=== PATIENT | female | born 1975 | race Caucasian/White ===

== ENCOUNTER 2017-05-25 09:59 | Inpatient (IN) | payer MEDICAID ==
[~2017-05-25] VITALS: Ht 152.4 cm; Wt 70.3 kg
[~2017-05-25 09:59] MED LIST: IBUP-2030; SERT-112
[2017-05-25] MEDS ORDERED: LACTATED RINGERS 1,000 ML IV SCH (11:00)
[2017-05-25 11:11] LABS: CLARITY URINE CLEAR (CLEAR); COLOR URINE YELLOW (YELLOW); GLUCOSE URINE NEGATIVE (NEGATIVE); KETONES URINE NEGATIVE (NEGATIVE); LEUKOCYTE ESTERASE URINE NEGATIVE (NEGATIVE); NITRITE URINE NEGATIVE (NEGATIVE); OCCULT BLOOD URINE 2+ (NEGATIVE); PROTEIN URINE NEGATIVE (NEGATIVE); SPECIFIC GRAVITY URINE 1.024 (1.005-1.030); UROBILINOGEN URINE 0.2 E.U./dL (0.2-1.0)
[2017-05-25 11:12] LABS: BASOPHILS % 0.3 % (0.0-2.0); HEMATOCRIT. 39.5 % (36.0-48.0); HEMOGLOBIN. 13.3 g/dL (12.0-16.0); LYMPHOCYTES % 18.4 % (20.0-50.0); MEAN CORPUSCULAR HEMOGLOBIN 29.7 pg (28.0-32.0); MEAN CORPUSCULAR VOLUME 88.3 fL (81.0-99.0); MEAN PLATELET VOLUME 8.8 fl (7.4-10.4); MONOCYTES % 9.8 % (2.0-8.0); NEUTROPHILS % 69.5 % (40.0-76.0); PLATELET 230 x1000/uL (130-400); RED BLOOD CELL COUNT 4.47 mill/uL (4.2-5.4); RED CELL DISTRIBUTION WIDTH 13.1 % (11.6-14.6)
[2017-05-25 11:19] LABS: PROTHROMBIN TIME 10.6 sec (9.4-11.6)
[2017-05-25] MEDS ORDERED: BACITRACIN 50,000 UNITS/VIAL ONE (11:23)
[2017-05-25] MEDS ORDERED: BUPIVACAINE/EPINEPH/PF 0.25%/0.0005 10ML ONE ×2 (11:23→18:00)
[2017-05-25 11:24] LABS: CARBON DIOXIDE 29 mEq/L (21-32); CHLORIDE 104 mEq/L (98-107)
[2017-05-25] MEDS ORDERED: NORMAL SALINE 0.9% 10 ML SYR ONE (11:24)
[2017-05-25] MEDS ORDERED: IBUP-2030 PO (11:37)
[2017-05-25] MEDS ORDERED: NAPR-681 PO (11:37)
[2017-05-25] MEDS ORDERED: NAPR220T66 PO (11:37)
[2017-05-25] MEDS ORDERED: MORPHINE SULFATE/PF 1MG/ML 10ML AMP ONE (12:44)
[2017-05-25] MEDS ORDERED: TRANEXAMIC ACID 1,000 MG in SODIUM CHLORIDE 0.9% 100 ML IV NR (13:00)
[2017-05-25] MEDS ORDERED: METHYLENE BLUE 50 MG/10 ML AMP IV NR (13:00)
[2017-05-25 13:08] LABS: HCG SCREEN POSITIVE
[2017-05-25 14:33] LABS: UCG SCREEN NEGATIVE
[2017-05-25 15:23] LABS: HCG SCREEN INDETERMINATE
[2017-05-25] MEDS ORDERED: MIDAZOLAM HCL 2 MG/2 ML VIAL ONE (15:53)
[2017-05-25] MEDS ORDERED: FENTANYL CITRATE/PF 50MCG/ML 2ML VIAL ONE (15:53)
[2017-05-25] MEDS ORDERED: HYDROMORPHONE HCL/PF 2MG/ML CPJ IV PRN (16:15)
[2017-05-25] MEDS ORDERED: MEPERIDINE HCL/PF 25MG/ML CPJ IV PRN (16:15)
[2017-05-25] MEDS ORDERED: LABETALOL HCL 20MG/4ML CARPUJECT IV PRN (16:15)
[2017-05-25] MEDS ORDERED: ONDANSETRON HCL 4MG/2ML VIAL IV PRN ×2 (16:15→19:00)
[2017-05-25] MEDS ORDERED: EPINEPHRINE 1:1000 1 MG/ML AMP ONE (16:18)
[2017-05-25] MEDS ORDERED: GENTAMICIN SULF 40MG/ML 2ML VIAL ONE (16:19)
[2017-05-25] MEDS ORDERED: LIDOCAINE HCL 1% 20ML VIAL (Pyxis) INJ ONE (16:36)
[2017-05-25] MEDS ORDERED: PROPOFOL 200MG/20ML VIAL IV ONE (16:36)
[2017-05-25] MEDS ORDERED: DEXAMETHASONE 4MG/ML 1ML VIAL ONE (16:37)
[2017-05-25] MEDS ORDERED: ONDANSETRON HCL 4MG/2ML VIAL ONE (16:37)
[2017-05-25] MEDS ORDERED: SODIUM CHLORIDE 0.9% 10ML VIAL ONE (16:37)
[2017-05-25] MEDS ORDERED: CEFAZOLIN SODIUM 1000MG/VIAL ONE (16:37)
[2017-05-25] MEDS ORDERED: HYDROMORPHONE HCL/PF 2MG/ML (OR) ONE (16:41)
[2017-05-25] MEDS ORDERED: BUPIVACAINE HCL/PF 0.25% (2.5MG/ML) 10ML ONE (18:00)
[2017-05-25] MEDS ORDERED: ACETAMINOPHEN 325MG TABLET PO PRN (19:00)
[2017-05-25] MEDS ORDERED: HYDROMORPHONE PCA 10MG/50ML IV PRN (19:09)
[2017-05-25] MEDS ORDERED: DIPHENHYDRAMINE INJ IV PRN (19:15)
[2017-05-25] MEDS ORDERED: NALOXONE INJ IV PRN (19:15)
[2017-05-25] MEDS ORDERED: ONDANSETRON INJ IV PRN (19:15)
[2017-05-25 21:30] VITALS: BP_SYST 117; BP_SYST 133; BP_DIAS 66; BP_DIAS 78
[2017-05-26] VITALS: BP_SYST 103; BP_SYST 115; BP_DIAS 61; BP_DIAS 70
[2017-05-26] MEDS: CEFAZOLIN 2,000 MG in DEXT 5% WATER 100 ML IV SCH ×2 (00:33→09:44)
[2017-05-26 04:00] VITALS: BP 113/69
[2017-05-26 08:00] VITALS: BP 105/66
[2017-05-26 09:44] LABS: HEMATOCRIT. 35.8 % (36.0-48.0); HEMOGLOBIN. 11.8 g/dL (12.0-16.0); MEAN CORPUSCULAR HEMOGLOBIN 29.4 pg (28.0-32.0); MEAN CORPUSCULAR VOLUME 89.2 fL (81.0-99.0); MEAN PLATELET VOLUME 9.4 fl (7.4-10.4); PLATELET 210 x1000/uL (130-400); RED BLOOD CELL COUNT 4.02 mill/uL (4.2-5.4)
[2017-05-26] MEDS: FERROUS SULFATE 325MG TABLET PO SCH ×2 (09:44→17:45)
[2017-05-26] MEDS: DOCUSATE SODIUM 100MG CAPSULE PO SCH ×2 (09:44→17:44)
[2017-05-26] MEDS: CELECOXIB 200MG CAPSULE PO SCH ×2 (09:44→17:44)
[2017-05-26 09:54] LABS: CARBON DIOXIDE 26 mEq/L (21-32); CHLORIDE 106 mEq/L (98-107)
[2017-05-26 12:00] VITALS: BP 111/62
[2017-05-26 16:00] VITALS: BP 112/64
[2017-05-26] MEDS: HYDROCODONE/ACETAMINOPHEN 10/325MG TABLET PO PRN ×2 (18:47→22:36)
[2017-05-26 19:57] LABS: PLATELET ESTIMATE NORMAL
[2017-05-26 20:00] VITALS: BP 117/62
[2017-05-27] VITALS: BP 115/70
[2017-05-27 03:30] LABS: UCG SCREEN NEGATIVE
[2017-05-27 04:00] VITALS: BP 117/69
[2017-05-27] MEDS: HYDROCODONE/ACETAMINOPHEN 10/325MG TABLET PO PRN ×4 (05:35→23:08)
[2017-05-27 07:38] LABS: BASOPHILS % 0.3 % (0.0-2.0); EOSINOPHILS % 1.3 % (0.0-5.0); HEMATOCRIT. 39.8 % (36.0-48.0); HEMOGLOBIN. 12.8 g/dL (12.0-16.0); MEAN CORPUSCULAR HEMOGLOBIN 29.1 pg (28.0-32.0); MEAN CORPUSCULAR VOLUME 90.3 fL (81.0-99.0); MEAN PLATELET VOLUME 9.6 fl (7.4-10.4); MONOCYTES % 12.4 % (2.0-8.0); PLATELET 136 x1000/uL (130-400); RED CELL DISTRIBUTION WIDTH 13.2 % (11.6-14.6)
[2017-05-27 08:00] VITALS: BP 104/55
[2017-05-27 08:00] LABS: CHLORIDE 106 mEq/L (98-107)
[2017-05-27 08:11] LABS: CARBON DIOXIDE 24 mEq/L (21-32)
[2017-05-27] MEDS: FERROUS SULFATE 325MG TABLET PO SCH ×3 (09:21→18:17)
[2017-05-27] MEDS: DOCUSATE SODIUM 100MG CAPSULE PO SCH ×2 (09:21→18:17)
[2017-05-27] MEDS: CELECOXIB 200MG CAPSULE PO SCH ×2 (09:21→18:17)
[2017-05-27 12:00] VITALS: BP 120/60
[2017-05-27] MEDS ORDERED: MORPHINE SULFATE 2 MG/ML CPJ (NOT FOR IM USE) IV PRN (12:00)
[2017-05-27 16:00] VITALS: BP 119/57
[2017-05-27 20:00] VITALS: BP 117/60
[2017-05-27] MEDS: MAGNESIUM HYDROXIDE 400MG/5ML 30ML UDC PO PRN (23:04)
[2017-05-28] VITALS: BP 116/64
[2017-05-28 04:00] VITALS: BP 99/56
[2017-05-28] MEDS: FERROUS SULFATE 325MG TABLET PO SCH ×3 (07:59→18:41)
[2017-05-28 08:00] VITALS: BP 127/71
[2017-05-28] MEDS: CELECOXIB 200MG CAPSULE PO SCH ×2 (08:00→18:41)
[2017-05-28] MEDS: HYDROCODONE/ACETAMINOPHEN 10/325MG TABLET PO PRN ×3 (08:00→18:42)
[2017-05-28] MEDS: DOCUSATE SODIUM 100MG CAPSULE PO SCH ×2 (08:01→18:41)
[2017-05-28 12:00] VITALS: BP 125/73
[2017-05-28 16:00] VITALS: BP 130/60
[2017-05-28 20:00] VITALS: BP 135/76
[2017-05-28] MEDS: ZOLPIDEM TARTRATE 5MG TABLET PO PRN (21:35)
[2017-05-28] MEDS: NICOTINE 7MG PATCH TD SCH (21:36)
[2017-05-29] VITALS: BP 105/54
[2017-05-29] MEDS: HYDROCODONE/ACETAMINOPHEN 10/325MG TABLET PO PRN ×5 (03:40→21:02)
[2017-05-29 04:00] VITALS: BP 108/56
[2017-05-29 08:00] VITALS: BP 127/74
[2017-05-29] MEDS: CELECOXIB 200MG CAPSULE PO SCH ×2 (09:00→18:12)
[2017-05-29] MEDS: DOCUSATE SODIUM 100MG CAPSULE PO SCH ×2 (09:00→18:12)
[2017-05-29] MEDS: FERROUS SULFATE 325MG TABLET PO SCH ×3 (09:00→18:12)
[2017-05-29] MEDS: NICOTINE 7MG PATCH TD SCH (09:00)
[2017-05-29] MEDS: MAGNESIUM HYDROXIDE 400MG/5ML 30ML UDC PO PRN (09:02)
[2017-05-29 12:00] VITALS: BP 114/67
[2017-05-29 16:00] VITALS: BP 122/70
[2017-05-29 20:00] VITALS: BP 135/77
[2017-05-30] VITALS: BP 118/69
[2017-05-30] MEDS: ZOLPIDEM TARTRATE 5MG TABLET PO PRN (00:13)
[2017-05-30 04:00] VITALS: BP 132/81
[2017-05-30] MEDS: HYDROCODONE/ACETAMINOPHEN 10/325MG TABLET PO PRN ×2 (04:57→09:17)
[2017-05-30 06:35] LABS: BASOPHILS % 0.3 % (0.0-2.0); EOSINOPHILS % 3.6 % (0.0-5.0); HEMATOCRIT. 32.8 % (36.0-48.0); HEMOGLOBIN. 10.9 g/dL (12.0-16.0); LYMPHOCYTES % 18.4 % (20.0-50.0); MEAN CORPUSCULAR HEMOGLOBIN 29.5 pg (28.0-32.0); MEAN CORPUSCULAR VOLUME 88.7 fL (81.0-99.0); MONOCYTES % 12.2 % (2.0-8.0); NEUTROPHILS % 65.5 % (40.0-76.0); PLATELET 221 x1000/uL (130-400); RED CELL DISTRIBUTION WIDTH 13.3 % (11.6-14.6)
[2017-05-30 06:56] LABS: CARBON DIOXIDE 29 mEq/L (21-32); CHLORIDE 104 mEq/L (98-107)
[2017-05-30 08:00] VITALS: BP 129/84
[2017-05-30] MEDS: FERROUS SULFATE 325MG TABLET PO SCH (09:10)
[2017-05-30] MEDS: DOCUSATE SODIUM 100MG CAPSULE PO SCH (09:10)
[2017-05-30] MEDS: CELECOXIB 200MG CAPSULE PO SCH (09:10)
[2017-05-30] MEDS: NICOTINE 7MG PATCH TD SCH (09:11)
[2017-05-30 09:46] VITALS: BP 129/84
== END 2017-05-30 10:40 | disposition home health service (06) | DRG 302 ==
LOC: OR 09:59 → 6EST 20:45
PROVIDERS: ADMIT Internal Medicine; ATTEND Internal Medicine
PROC: 3E0T3BZ Introduction of Anesthetic Agent into Peripheral Nerves and Plexi, Percutaneous Approach (ICD-10-PCS; 2017-05-25)
PROC: 0SRC0J9 Replacement of Right Knee Joint with Synthetic Substitute, Cemented, Open Approach (ICD-10-PCS; principal; 2017-05-25 14:00)
DX: M17.11 Unilateral primary osteoarthritis, right knee (principal); D72.829 Elevated white blood cell count, unspecified; F17.210 Nicotine dependence, cigarettes, uncomplicated; M65.9 Synovitis and tenosynovitis, unspecified; G89.29 Other chronic pain; Z86.19 Personal history of other infectious and parasitic diseases; Z82.49 Family history of ischemic heart disease and other diseases of the circulatory system; Z95.5 Presence of coronary angioplasty implant and graft
CPT/HCPCS: 36415; 73560; 80048; 81001; 81025; 84702; 84703; 85025; 85610; 85730; 86850; 86900; 86920; 88305; 88311; 93970; 97110; 97116; 97162; 97530; 97535; A4216; C1776; C1893; J0171; J0690; J1100; J1170; J1580; J2250; J2274; J2405; J2704; J3010; J3490; J7030; J7050; J7060; J7120; L1830; Q9968

== ENCOUNTER 2018-08-02 10:58 | Inpatient (IN) | payer MEDICAID ==
[~2018-08-02] VITALS: Ht 152.4 cm; Wt 74.8 kg
[~2018-08-02 10:58] MED LIST changes: +ACET-2708 PO; +ASPI-1159 PO; +CLIN300C11 PO; +HYDR-4009 PO; +IBUP-2029 PO; -IBUP-2030; -SERT-112; +ZOLP10TA2 PO; +[UNRECOGNIZED DRUG - OTHER]
[2018-08-02] MEDS ORDERED: VANCOMYCIN 1 G PREMIX 200 ML IV ONE (11:45)
[2018-08-02 12:31] LABS: BASOPHILS % 0.4 % (0.0-2.0); EOSINOPHILS % 1.8 % (0.0-5.0); HEMOGLOBIN. 13.3 g/dL (12.0-16.0); LYMPHOCYTES % 24.5 % (20.0-50.0); MEAN CORPUSCULAR HEMOGLOBIN 28.8 pg (28.0-32.0); MONOCYTES % 9.4 % (2.0-8.0); NEUTROPHILS % 63.9 % (40.0-76.0); PLATELET 236 x1000/uL (130-400); RED CELL DISTRIBUTION WIDTH 14.1 % (11.6-14.6)
[2018-08-02 12:39] LABS: PROTHROMBIN TIME 10.1 sec (9.1-11.1)
[2018-08-02 12:42] LABS: CHLORIDE 104 mEq/L (98-107)
[2018-08-02 13:33] LABS: CLARITY URINE CLOUDY (CLEAR); COLOR URINE YELLOW (YELLOW); KETONES URINE NEGATIVE (NEGATIVE); LEUKOCYTE ESTERASE URINE NEGATIVE (NEGATIVE); NITRITE URINE NEGATIVE (NEGATIVE); OCCULT BLOOD URINE 2+ (NEGATIVE); PROTEIN URINE NEGATIVE (NEGATIVE); SPECIFIC GRAVITY URINE 1.021 (1.005-1.030); UROBILINOGEN URINE 0.2 E.U./dL (0.2-1.0)
[2018-08-02] MEDS ORDERED: ONDANSETRON HCL 4MG/2ML INJ IV PRN ×2 (15:15→19:30)
[2018-08-02] MEDS ORDERED: MORPHINE SULFATE 4 MG/ML CPJ (NOT FOR IM USE) IV PRN ×4 (15:15→19:45)
[2018-08-02] MEDS ORDERED: HYDROCODONE/ACETAMINOPHEN 5/325MG TABLET PO PRN (15:15)
[2018-08-02] MEDS ORDERED: CLONIDINE 0.1MG TABLET PO PRN (15:15)
[2018-08-02] MEDS ORDERED: DEXT 5%/0.45% NACL 1000ML 1,000 ML IV SCH ×2 (15:15→22:15)
[2018-08-02] MEDS ORDERED: BUPIVACAINE/EPINEPH/PF 0.25%/0.0005 10ML ONE (16:16)
[2018-08-02] MEDS ORDERED: NORMAL SALINE 0.9% 10 ML SYR ONE (16:16)
[2018-08-02] MEDS ORDERED: BACITRACIN 50,000 UNITS/VIAL ONE (16:23)
[2018-08-02] MEDS ORDERED: FENTANYL CITRATE/PF 50MCG/ML 2ML VIAL ONE (17:51)
[2018-08-02] MEDS ORDERED: PROPOFOL 200MG/20ML VIAL IV ONE (17:52)
[2018-08-02] MEDS ORDERED: LIDOCAINE HCL 1% 20ML VIAL (Pyxis) INJ ONE (17:53)
[2018-08-02] MEDS ORDERED: EPHEDRINE SULFATE 50MG/ML VIAL ONE ×2 (18:07→18:29)
[2018-08-02] MEDS ORDERED: ONDANSETRON HCL 4MG/2ML INJ ONE (19:12)
[2018-08-02] MEDS ORDERED: METOCLOPRAMIDE HCL 10MG/2ML VIAL ONE (19:12)
[2018-08-02] MEDS ORDERED: MAGNESIUM HYDROXIDE 400MG/5ML 30ML UDC PO PRN (19:30)
[2018-08-02] MEDS ORDERED: ACETAMINOPHEN 325MG TABLET PO NR (19:30)
[2018-08-02] MEDS ORDERED: HYDROCODONE/ACETAMINOPHEN 10/325MG TABLET PO PRN ×2 (19:30)
[2018-08-02] MEDS ORDERED: ZOLPIDEM TARTRATE 5MG TABLET PO PRN (21:00)
[2018-08-02 21:33] VITALS: BP 100/48
[2018-08-02] MEDS: SULFAMETHOXAZOLE/TRIMETHOPRIM 800/160MG TABLET PO SCH (21:54)
[2018-08-02] MEDS ORDERED: VANCOMYCIN 1250MG in DEXTROSE 5% WATER 250ML IV SCH (22:00)
[2018-08-02 23:45] VITALS: BP 101/58
[2018-08-03] VITALS: BP 101/45
[2018-08-03] MEDS: ACETAMINOPHEN 325MG TABLET PO PRN ×2 (04:18→11:37)
[2018-08-03 04:42] VITALS: BP 106/49
[2018-08-03 08:00] VITALS: BP 108/59
[2018-08-03] MEDS: SULFAMETHOXAZOLE/TRIMETHOPRIM 800/160MG TABLET PO SCH (08:37)
[2018-08-03] MEDS ORDERED: DOCUSATE SODIUM 100MG CAPSULE PO SCH (09:00)
[2018-08-03 10:05] VITALS: BP 118/59
== END 2018-08-03 12:10 | disposition home or self-care (01) | DRG 385 ==
LOC: ER 10:58 → EDBEDREQ 11:45 → 6EST 14:25 → EDBEDREQTM 14:29 → EDBEDREQ 14:29 → ENRESERV 15:42
PROVIDERS: ADMIT Internal Medicine; ATTEND Internal Medicine
PROC: 0JBP0ZZ Excision of Left Lower Leg Subcutaneous Tissue and Fascia, Open Approach (ICD-10-PCS; principal; 2018-08-02 17:00)
DX: L91.0 Hypertrophic scar (principal); L02.416 Cutaneous abscess of left lower limb; F17.210 Nicotine dependence, cigarettes, uncomplicated; L01.00 Impetigo, unspecified; L90.5 Scar conditions and fibrosis of skin; Z96.653 Presence of artificial knee joint, bilateral
CPT/HCPCS: 36415; 71045; 83605; 84145; 84484; 87070; 87075; 88305; 88312; 93005; 93970; 97162; 97535; 99285; A4216; J0171; J2270; J2405; J2704; J2765; J3010; J3370; J3490; J7060